=== PATIENT | female | born 1995 | race Caucasian/White ===

== ENCOUNTER 2024-09-19 13:34 | Outpatient (RCR) | payer OTHER, SELFPAY ==
[2024-09-19 14:30] LABS: Beta HCG Quantitative 4.85 mIU/ML
== END 2024-12-18 23:59 | disposition home or self-care (01) ==
LOC: ANHLAB 13:34
PROVIDERS: Visit Provider Obstetrics & Gynecology
DX: O20.0 Threatened abortion (principal)
CPT/HCPCS: 36415; 84702